=== PATIENT | male | born 1995 | race African-American/Black ===

== ENCOUNTER 2018-08-27 22:12 | Emergency (ER) | payer OTHER ==
[2018-08-27 22:20] VITALS: BMI 19.8
[2018-08-27] MEDS ORDERED: diphenhydrAMINE HCL 25 MG CAPSULE (FP) PO ONE ×2 (22:51→22:58)
[2018-08-27] MEDS ORDERED: DEXAMETHASONE LIQUID 0.5 MG/5 ML 240 ML BULK BOTTLE PO ONE (22:51)
[2018-08-27] MEDS ORDERED: RANITIDINE HCL 150 MG TABLET (FP) PO ONE (22:51)
--- NOTE | 2018-08-27 22:51 | PDOC ---
Rapid Medical Evaluation Chief Complaint: Allergic Reaction Time Seen by Provider: 08/27/18 22:36 Medical Evaluation: Allergies Allergy/AdvReac Type Severity Reaction Status Date / Time No Known Allergies Allergy Verified 08/27/18 22:18 Vital Signs Temp Pulse Resp BP Pulse Ox 98.3 F 70 16 136/70 100 08/27/18 22:18 08/27/18 22:18 08/27/18 22:18 08/27/18 22:18 08/27/18 22:18 08/27/18 22:50 I performed a brief examination of this patient Chief complaint: Rash and itching 2 hours after eating hummus Pertinent physical exam findings-term: Hives with urticaria present to anterior posterior trunk as well as upper extremities Oropharynx clear without erythema or exudates Lungs clear to auscultation bilaterally No stridor or drooling present. Benadryl 50 mg orally Zantac 150 mg orally Decadron 10 mg orally Patient will proceed to Main ER for continued evaluation. Discharge Disposition - Diagnosis Allergic reaction - Referrals - Patient Instructions - Post Discharge Activity
[2018-08-27] MEDS ORDERED: DEXAMETHASONE SOD PHOSPHATE 10 MG/1 ML VIAL ONE (22:57)
[2018-08-27] MEDS ORDERED: RANITIDINE HCL 150 MG TABLET (FP) ONE (22:58)
--- NOTE | 2018-08-27 23:16 | PDOC ---
History of Present Illness - General Chief Complaint: Allergic Reaction Stated Complaint: ALLERGIC REACTION Time Seen by Provider: 08/27/18 22:36 History Source: Patient Exam Limitations: No Limitations - History of Present Illness Initial Comments: 08/27/18 23:09 Patient is a 23-year-old male with no past medical history complaining of generalized itching and rash since about 9 PM. Patient states that he had hummus around 6 PM and then about 9 PM started having hives rash, itching and stuffy nose. Patient states he's had chickpeas in the past but this was the first time eating hummus. Denies any shortness of breath, chest pain or dizziness, throat involvement. PMD: [facility] PMHX: as above PSOCHX: neg etoh, drug, cig ALL: NKDA GENERAL/CONSTITUTIONAL: No fever or chills. No weakness. No weight change. HEAD, EYES, EARS, NOSE AND THROAT: No change in vision. No ear pain or discharge. No sore throat. CARDIOVASCULAR: No chest pain or shortness of breath. RESPIRATORY: No cough, wheezing, or hemoptysis. GASTROINTESTINAL: No nausea, vomiting, diarrhea or constipation. No rectal bleeding. GENITOURINARY: No dysuria, frequency, or change in urination. MUSCULOSKELETAL: No joint or muscle swelling or pain. No neck or back pain. SKIN AND BREASTS: No rash or easy bruising. NEUROLOGIC: No headache, vertigo, loss of consciousness, or loss of sensation. PSYCHIATRIC: No depression or anxiety. ENDOCRINE: No increased thirst. No abnormal weight change. HEMATOLOGIC/LYMPHATIC: No anemia, easy bleeding, or history of blood clots. ALLERGIC/IMMUNOLOGIC: No hives or skin allergy. No latex allergy. GENERAL: The patient is awake, alert, and fully oriented, in no acute distress. HEAD: Normal with no signs of trauma. EYES: Pupils equal, round and reactive to light, extraocular movements intact, sclera anicteric, conjunctiva clear. ENT: Ears normal, nares hyperemic septum, (+) rhinorrhea, patent, oropharynx clear without exudates, no swelling uvula midline. Moist mucous membranes. NECK: Normal range of motion, supple without lymphadenopathy, JVD, or masses. LUNGS: Breath sounds equal, clear to auscultation bilaterally. No wheezes, and no crackles. HEART: Regular rate and rhythm, normal S1 and S2 without murmur, rub. ABDOMEN: Soft, nontender, normoactive bowel sounds. No guarding, no rebound. No masses. EXTREMITIES: Normal range of motion, no edema. No clubbing or cyanosis. No cords, erythema, or tenderness. NEUROLOGICAL: Cranial nerves II through XII grossly intact. Normal speech, normal gait. PSYCH: Normal mood, normal affect. SKIN: Warm, Dry, normal turgor, hives like rash is generalized, Past History - Past Medical History Allergies/Adverse Reactions: Allergies Allergy/AdvReac Type Severity Reaction Status Date / Time No Known Allergies Allergy Verified 08/27/18 22:18 Home Medications: Ambulatory Orders Loratadine [Claritin] 10 mg PO DAILY #5 tablet 08/28/18 Ranitidine HCl [Zantac] 150 mg PO DAILY #5 tablet 08/28/18 COPD: No - Suicide/Smoking/Psychosocial Hx Smoking History: Never smoked Have you smoked in the past 12 months: No Information on smoking cessation initiated: No Hx Alcohol Use: No Drug/Substance Use Hx: No *Physical Exam - Vital Signs Last Vital Signs Temp Pulse Resp BP Pulse Ox 98.3 F 70 16 136/70 100 08/27/18 22:18 08/27/18 22:18 08/27/18 22:18 08/27/18 22:18 08/27/18 22:18 Moderate Sedation - Procedure Monitoring Vital Signs: Procedure Monitoring Vital Signs Temperature 98.3 F 08/27/18 22:18 Pulse Rate 70 08/27/18 22:18 Respiratory Rate 16 08/27/18 22:18 Blood Pressure 136/70 08/27/18 22:18 O2 Sat by Pulse Oximetry (%) 100 08/27/18 22:18 Medical Decision Making - Medical Decision Making 08/27/18 23:09 Patient is a 23-year-old male with no past medical history complaining of generalized itching and rash since about 9 PM. Patient states that he had hummus around 6 PM and then about 9 PM started having hives rash, itching and stuffy nose. Patient states he's had chickpeas in the past but this was the first time eating hummus. Denies any shortness of breath, chest pain or dizziness, throat involvement. Patient was given Decadron 10 mg by mouth, Zantac 150mg po and Benadryl 50 mg by mouth in triage. Will continue to observe for resolution of symptoms prior to discharge. Patient is improved and rash is resolved, rhinorrhea and nasal stuffiness also resolved Patient has no shortness of breath and lungs are clear Selected Entries 08/28/18 01:08 Temperature 98.7 F Pulse Rate [ 86 Left Apical] Respiratory 18 Rate Blood Pressure 113/68 [Right Arm] O2 Sat by Pulse 98 Oximetry (%) I discussed the physical exam findings, ancillary test results and final diagnoses with the patient. I answered all of the patient's questions. The patient was satisfied with the care received and felt comfortable with the discharge plan and treatment plan. The Patient agrees to follow up with the primary care physician within 24-72 hours. *DC/Admit/Observation/Transfer Diagnosis at time of Disposition: Allergic reaction Qualifiers: Encounter type: initial encounter Qualified Code(s): T78.40XA - Allergy, unspecified, initial encounter - Discharge Dispostion Disposition: HOME Condition at time of disposition: Stable - Prescriptions Prescriptions: Loratadine [Claritin] 10 mg PO DAILY #5 tablet Ranitidine HCl [Zantac] 150 mg PO DAILY #5 tablet - Referrals Referrals: Aarti Souza MD [Provisional Medical Staff] - - Patient Instructions Printed Discharge Instructions: DI for General Allergic Reactions Additional Instructions: Your Discharge Instructions: You must call primary care physician within 24 hours to arrange follow-up. Return to the Emergency Department with any new, persistent or worsening symptoms, for fever, chills, SOB, dizziness or any other concerning changes that may occur. You need to continue with Benadryl or Zyrtec or Claritin daily for the next 3 days along with Pepcid. - Post Discharge Activity
[2018-08-28] MEDS ORDERED: diphenhydrAMINE HCL 25 MG CAPSULE (FP) PO ONE (00:03)
[2018-08-28] MEDS ORDERED: DEXAMETHASONE SOD PHOSPHATE 10 MG/1 ML VIAL ONE (00:03)
[2018-08-28] MEDS ORDERED: RANITIDINE HCL 150 MG TABLET (FP) ONE (00:04)
[2018-08-28 02:13] VITALS: BP 113/68; PULSE 86; TEMP 98.7
== END 2018-08-28 01:45 | disposition home or self-care (01) ==
LOC: JER 22:12 → JERFT 22:12 → JER 08-28 01:45
DX: T78.49XA Other allergy, initial encounter (principal); L50.0 Allergic urticaria; X58.XXXA Exposure to other specified factors, initial encounter
CPT/HCPCS: 99282-25

== ENCOUNTER 2019-07-02 09:57 | Emergency (ER) | payer OTHER ==
[2019-07-02 10:09] VITALS: BP 137/74; PULSE 83; TEMP 99.9; BMI 19.8
--- NOTE | 2019-07-02 10:45 | PDOC ---
History of Present Illness - General Chief Complaint: Sore Throat Stated Complaint: FEVER Time Seen by Provider: 07/02/19 10:19 History Source: Patient - History of Present Illness Timing/Duration: reports: other Past History - Past Medical History Allergies/Adverse Reactions: Allergies Allergy/AdvReac Type Severity Reaction Status Date / Time No Known Allergies Allergy Verified 07/02/19 10:06 Home Medications: Ambulatory Orders Loratadine [Claritin] 10 mg PO DAILY #5 tablet 08/28/18 Ranitidine HCl [Zantac] 150 mg PO DAILY #5 tablet 08/28/18 COPD: No - Immunization History Immunization Up to Date: Yes - Psycho Social/Smoking Cessation Hx Smoking History: Never smoked Have you smoked in the past 12 months: No Hx Alcohol Use: Yes Drug/Substance Use Hx: No Review of Systems - Review of Systems Constitutional: Yes: Fever HEENTM: Yes: Throat Pain *Physical Exam - Vital Signs Last Vital Signs Temp Pulse Resp BP Pulse Ox 99.9 F H 83 16 137/74 100 07/02/19 10:07 07/02/19 10:07 07/02/19 10:07 07/02/19 10:07 07/02/19 10:07 - Physical Exam General Appearance: Yes: Appropriately Dressed. No: Apparent Distress HEENT: positive: Normal ENT Inspection, Normal Voice, TMs Normal, Pharynx Normal. negative: Scleral Icterus (R), Scleral Icterus (L) Neck: positive: Supple. negative: Lymphadenopathy (R), Lymphadenopathy (L) Respiratory/Chest: negative: Respiratory Distress Integumentary: positive: Dry, Warm Neurologic: positive: Fully Oriented, Alert, Normal Mood/Affect Medical Decision Making - Medical Decision Making 07/02/19 10:43 23-year-old male no significant history here with sore throat with subjective fever x several days. Patient admits that symptoms are improving but wanted to be evaluated. No ear pain headache or body aches see exam M/l viral URI Exam wnl Dc w/ supportive tx Discharge - Discharge Information Problems reviewed: Yes Clinical Impression/Diagnosis: URI (upper respiratory infection) Qualifiers: URI type: unspecified viral URI Qualified Code(s): J06.9 - Acute upper respiratory infection, unspecified Condition: Good Disposition: HOME - Follow up/Referral - Patient Discharge Instructions Patient Printed Discharge Instructions: DI for Viral Upper Respiratory Infection -- Adult - Post Discharge Activity Work/Back to School Note: Back to Work
== END 2019-07-02 10:48 | disposition home or self-care (01) ==
LOC: JERFT 09:57
DX: J06.9 Acute upper respiratory infection, unspecified (principal); B97.89 Other viral agents as the cause of diseases classified elsewhere
CPT/HCPCS: 99281-25